=== PATIENT | female | born 1985 | race African-American/Black ===

== ENCOUNTER 2017-11-21 18:06 | Emergency (ER) | payer SELFPAY ==
[~2017-11-21] VITALS: Ht 157.4 cm; Wt 49.9 kg
[2017-11-21 18:33] LABS: BASO % 0.5 % (0.0-1.0); EOS # 0.1 10*3/uL (0.0-0.4); EOS % 1.1 % (1.0-4.0); HEMATOCRIT 35.6 % (37.0-47.0); HEMOGLOBIN 11.4 g/dl (12.0-16.0); LYMPH # 2.2 10*3/uL (1.3-4.4); LYMPH % 36.2 % (27.0-41.0); MEAN CELL VOLUME 84.4 fl (81.0-99.0); MEAN PLATELET VOLUME 11.1 fl (9.6-12.3); MONO # 0.4 10*3/uL (0.1-1.0); MONO % 7.1 % (3.0-9.0); NEUT # 3.4 10*3/uL (2.3-7.9); NEUT % 54.9 % (47.0-73.0); PLATELET COUNT AUTOMATED 349 10*3/uL (130-400); RED BLOOD COUNT 4.22 10*6/uL (4.10-5.10); RED CELL DISTRI WIDTH 14.6 % (0-14.5); WHITE BLOOD COUNT 6.2 10*3/uL (4.8-10.8)
[2017-11-21 18:35] LABS: BILIRUBIN NEGATIVE (NEGATIVE); BLOOD 3+ (NEGATIVE); CLARITY CLOUDY (CLEAR); COLOR YELLOW (YELLOW); GLUCOSE NEGATIVE (NEGATIVE); KETONE NEGATIVE (NEGATIVE)
[2017-11-21 18:36] LABS: UROBILINOGEN 0.2 E.U./dl (0.2-1.0)
[2017-11-21 18:37] LABS: LEUKO ESTERASE 1+ (NEGATIVE); NITRITE POSITIVE (NEGATIVE)
[2017-11-21 18:45] LABS: BACTERIA 3+; EPITHELIAL CELLS TNTC
[2017-11-21 18:54] LABS: ALBUMIN 4.2 gm/dl (3.1-4.5); ALKALINE PHOSPHATASE 87 U/L (45-117); BUN 23 mg/dl (7-24); CHLORIDE 109 mmol/L (98-107); CREATININE 0.61 mg/dL (0.55-1.02); POTASSIUM 3.7 mmol/L (3.5-5.1); SGOT/AST 13 IU/L (3-35); SGPT/ALT 17 U/L (12-78); SODIUM 142 mmol/L (136-145); TOTAL PROTEIN 7.6 gm/dL (6.4-8.2)
[2017-11-21] MEDS ORDERED: PYRIDIUM200 M1 PO (19:34)
[2017-11-21] MEDS ORDERED: SEPTDS PO (19:34)
[2017-11-21] MEDS ORDERED: ZOFRAN4 MG PO (19:34)
== END 2017-11-21 20:14 | disposition home or self-care (01) ==
LOC: ED 18:06
PROVIDERS: Emergency Medicine; Nurse Practitioner Family
DX: N39.0 Urinary tract infection, site not specified (principal); R03.0 Elevated blood-pressure reading, without diagnosis of hypertension; F17.200 Nicotine dependence, unspecified, uncomplicated; Z88.6 Allergy status to analgesic agent; Z88.8 Allergy status to other drugs, medicaments and biological substances; Z87.442 Personal history of urinary calculi

== ENCOUNTER 2018-03-19 16:24 | Emergency (ER) | payer SELFPAY ==
[~2018-03-19] VITALS: Ht 157.4 cm; Wt 49.9 kg
[~2018-03-19 16:24] MED LIST: PYRIDIUM200 M1 PO; SEPTDS PO; ZOFRAN4 MG PO
[2018-03-19 16:48] LABS: BILIRUBIN NEGATIVE (NEGATIVE); BLOOD NEGATIVE (NEGATIVE); CLARITY CLOUDY (CLEAR); COLOR YELLOW (YELLOW); GLUCOSE NEGATIVE (NEGATIVE); KETONE NEGATIVE (NEGATIVE); LEUKO ESTERASE NEGATIVE (NEGATIVE); NITRITE POSITIVE (NEGATIVE); SPECIFIC GRAVITY 1.015 (1.005-1.030); UROBILINOGEN 0.2 E.U./dl (0.2-1.0)
[2018-03-19 16:58] LABS: BACTERIA 4+; MUCOUS TRACE; RBC 0-2 rbc/hpf (0-2)
[2018-03-19] MEDS ORDERED: MACROBID100 M1 PO (17:18)
== END 2018-03-19 17:19 | disposition home or self-care (01) ==
LOC: ED 16:24
PROVIDERS: Nurse Practitioner Family
DX: N39.0 Urinary tract infection, site not specified (principal); Z88.6 Allergy status to analgesic agent; Z88.8 Allergy status to other drugs, medicaments and biological substances; Z79.899 Other long term (current) drug therapy; Z91.041 Radiographic dye allergy status; Z87.442 Personal history of urinary calculi

== ENCOUNTER 2018-05-31 23:50 | Emergency (ER) | payer OTHER ==
[~2018-05-31] VITALS: Ht 162.5 cm; Wt 52.2 kg
[~2018-05-31 23:50] MED LIST changes: +MACROBID100 M1 PO
[2018-06-01] MEDS ORDERED: AUGMENTIN 875875 MG PO (00:07)
[2018-06-01] MEDS ORDERED: Motrin,Rufen800 MG PO (00:07)
[2018-06-28] MEDS ORDERED: PYRIDIUM200 M1 PO (20:22)
[2018-06-28] MEDS ORDERED: SEPTDS PO (20:22)
== END 2018-06-01 01:03 | disposition home or self-care (01) ==
LOC: ED 23:50
DX: K08.89 Other specified disorders of teeth and supporting structures (principal); Z88.6 Allergy status to analgesic agent; Z88.8 Allergy status to other drugs, medicaments and biological substances; Z91.041 Radiographic dye allergy status